=== PATIENT | female | born 1965 | race Caucasian/White ===

== ENCOUNTER 2023-04-19 11:38 | Emergency (ER) | payer OTHER ==
[~2023-04-19] VITALS: Ht 157.5 cm; Wt 100.0 kg
[2023-04-19 11:40] VITALS: TEMP 98.8
[2023-04-19] MEDS ORDERED: HYDR-4723 PO (11:57)
[2023-04-19] MEDS ORDERED: CYCL-448 PO (11:57)
[2023-04-19] MEDS ORDERED: LISINOPRIL 10 MG TABLET PO ONE (13:00)
[2023-04-19] MEDS ORDERED: HYDROCODONE/ACETAMINOPHEN 10-325 MG TABLET PO ONE (13:00)
[2023-04-19] MEDS ORDERED: KETOROLAC TROMETHAMINE 30 MG/ML VIAL IM ONE (13:00)
[2023-04-19] MEDS ORDERED: LISI-893 PO (13:06)
[2023-04-19] MEDS ORDERED: HYDR-4069 PO (13:08)
[2023-04-19] MEDS ORDERED: MELO-106 PO (13:08)
[2023-04-19] MEDS ORDERED: CYCL5TAB PO (13:08)
[2023-04-19] MEDS ORDERED: LIDO1ADH63 TD (13:08)
[2023-04-19] MEDS ORDERED: LISI30TA4 PO (13:08)
[2023-04-19 14:16] VITALS: BP 150/104; PULSE 61; RESP 18
== END 2023-04-19 16:20 | disposition home or self-care (01) ==
LOC: EMS 11:39
DX: S63.502A Unspecified sprain of left wrist, initial encounter (principal); I10 Essential (primary) hypertension; Z90.710 Acquired absence of both cervix and uterus; Z88.0 Allergy status to penicillin; X58.XXXA Exposure to other specified factors, initial encounter; Y93.89 Activity, other specified; Y92.89 Other specified places as the place of occurrence of the external cause; Y99.8 Other external cause status
CPT/HCPCS: 99284; 73090; 73110; 73130; 29125; 96372; J1885